=== PATIENT | female | born 1945 | race Caucasian/White ===

== ENCOUNTER 2017-10-22 16:32 | Emergency (ER) | payer OTHER, MEDICAID ==
[~2017-10-22] VITALS: Ht 162.6 cm; Wt 93.0 kg
[~2017-10-22 16:32] MED LIST: AMLO1CAP54 PO; ASPI-1155 PO; ATOR10TA68 PO; GLIP2.5T9 PO; GLU500 PO; HYDR-1189 PO; METO25TA6 PO
[2017-10-22 16:40] VITALS: BP_SYST 139
[2017-10-22 17:21] VITALS: BP_SYST 138
== END 2017-10-22 17:20 | disposition home or self-care (01) ==
LOC: SED 16:32
DX: L03.031 Cellulitis of right toe (principal); E11.9 Type 2 diabetes mellitus without complications; I10 Essential (primary) hypertension; Z91.041 Radiographic dye allergy status; Z79.899 Other long term (current) drug therapy
CPT/HCPCS: 99283

== ENCOUNTER 2022-07-31 00:48 | Emergency (ER) | payer OTHER, MEDICAID ==
[~2022-07-31] VITALS: Ht 162.6 cm; Wt 59.0 kg
[~2022-07-31 00:48] MED LIST changes: -HYDR-1189 PO; +HYDR-3919 PO
[2022-07-31 01:00] VITALS: BP_SYST 122
[2022-07-31] MEDS ORDERED: NACL 0.9% 1,000 ML IV ONE (02:00)
[2022-07-31 02:48] LABS: BASOPHILS % (AUTO) 0.2 % (0.0-2.0); EOSINOPHILS # (AUTO) 0.1 K/uL (0.0-0.4); EOSINOPHILS % (AUTO) 0.8 % (0.0-4.0); HEMATOCRIT 40.4 % (36-48); HEMOGLOBIN 13.3 g/dL (12.0-16.0); LYMPHOCYTES # (AUTO) 0.9 K/uL (1.0-5.5); LYMPHOCYTES % (AUTO) 6.5 % (20.5-51.5); MEAN CORPUSCULAR HEMOGLOBIN 29 pg (27-31); MEAN CORPUSCULAR HGB CONC 33 % (32-36); MEAN CORPUSCULAR VOLUME 90 fL (79.0-98.0); MONOCYTES % (AUTO) 7.8 % (1.7-9.3); NEUTROPHILS # (AUTO) 11.1 K/uL (1.8-7.7); NEUTROPHILS % (AUTO) 84.7 % (40.0-70.0); PLATELET COUNT (AUTO) 275 K/uL (130-430); RED BLOOD CELL COUNT(AUTO) 4.51 MIL/uL (4.2-6.2); RED CELL DISTRIBUTION WIDTH 14.1 % (9.0-15.0); WHITE BLOOD COUNT (AUTO) 13.2 K/uL (4.8-10.8)
[2022-07-31 02:54] LABS: BILIRUBIN,URINE NEGATIVE (NEGATIVE); BLOOD, URINE NEGATIVE (NEGATIVE); CLARITY/URINE CLEAR (CLEAR); COLOR,URINE YELLOW (YELLOW); GLUCOSE,URINE 3+ (NEGATIVE); KETONES,URINE 1+ (NEGATIVE); LEUKOCYTE ESTERASE ,URINE NEGATIVE (NEGATIVE); NITRITE, URINE NEGATIVE (NEGATIVE); PROTEIN URINE NEGATIVE (NEGATIVE); UROBILINOGEN,URINE 0.2 (0.2-1.0)
[2022-07-31 03:07] LABS: ALANINE AMINOTRANSFERASE 18 U/L (12-78); ALBUMIN 3.5 g/dL (3.4-4.8); ANION GAP 9 (5-15); ASPARTATE AMINOTRANSFERASE 23 U/L (10-37); CALCIUM 9.2 mg/dL (8.4-11.0); CHLORIDE 101 mmol/L (98-107); CREATININE 1.07 mg/dL (0.55-1.30); GLUCOSE 162 mg/dL (70-99); TOTAL BILIRUBIN 0.6 mg/dL (0.0-1.0); UREA NITROGEN, BLOOD 15 mg/dL (8-21)
[2022-07-31 03:15] LABS: ACETONE, SERUM NEGATIVE (NEGATIVE)
[2022-07-31] MEDS ORDERED: AZITHROMYCIN 500 MG in NS 250 ML IV ONE (03:45)
[2022-07-31] MEDS ORDERED: AZITHROMYCIN 500 MG/VIAL (ZITHROMAX) IV ONE (03:56)
[2022-07-31] MEDS ORDERED: CEFU250T85 PO (03:56)
[2022-07-31] MEDS ORDERED: AZIT-93 PO (03:56)
[2022-07-31 06:00] VITALS: BP_SYST 133
== END 2022-07-31 06:01 | disposition home or self-care (01) ==
LOC: SED 00:48
DX: J18.1 Lobar pneumonia, unspecified organism (principal); E86.0 Dehydration; E11.9 Type 2 diabetes mellitus without complications; I10 Essential (primary) hypertension; R50.9 Fever, unspecified; R06.02 Shortness of breath; R53.1 Weakness; Z91.041 Radiographic dye allergy status; Z79.899 Other long term (current) drug therapy; Z20.822 Contact with and (suspected) exposure to COVID-19
CPT/HCPCS: 99284; 96365; 71045; 96361; 87426; 80053; 82009; 82550; 82962; 85025; 84484; 36415; 81003; 87804 ×2; J0456; J7030